=== PATIENT | female | born 1960 | race Caucasian/White ===

== ENCOUNTER 2018-02-24 12:54 | Day surgery (SDC) | payer OTHER ==
[~2018-02-24] VITALS: Ht 167.6 cm; Wt 96.1 kg
[~2018-02-24 12:54] MED LIST: Adalat/Procardi20 MG; CARV6.25; CHOL10002; Hair, Skin & N1 EACH; LOSARTAN-HCTZ1 EAC1; Simvastatin20 MG
[2018-02-24] MEDS ORDERED: METF500C (13:08)
== END 2018-02-24 14:43 | disposition home or self-care (01) ==
LOC: ORSCSDS 12:54
PROVIDERS: Surgery
PROC: 0DBH8ZX Excision of Cecum, Via Natural or Artificial Opening Endoscopic, Diagnostic (ICD-10-PCS; principal; 2018-02-24 14:15)
PROC: 0DBM8ZX Excision of Descending Colon, Via Natural or Artificial Opening Endoscopic, Diagnostic (ICD-10-PCS; principal; 2018-02-24 14:15)
DX: Z12.11 Encounter for screening for malignant neoplasm of colon (principal); D12.0 Benign neoplasm of cecum; D12.4 Benign neoplasm of descending colon; K64.8 Other hemorrhoids; I10 Essential (primary) hypertension; E78.5 Hyperlipidemia, unspecified; J44.9 Chronic obstructive pulmonary disease, unspecified; F41.9 Anxiety disorder, unspecified; Z87.891 Personal history of nicotine dependence; Z79.899 Other long term (current) drug therapy
CPT/HCPCS: 82947; 88305; J7120